=== PATIENT | male | born 1955 | race Caucasian/White ===

== ENCOUNTER 2017-11-03 05:56 | Day surgery (SDC) | payer OTHER ==
[2017-11-03] MEDS ORDERED: SOD CHLORIDE 0.9% 1,000 ML IV (06:00)
[2017-11-03] MEDS ORDERED: GLYCOPYRROLATE 0.4 MG INJ (06:28)
[2017-11-03] MEDS ORDERED: FENTAnyl 50 MCG/ML VIAL (06:28)
[2017-11-03] MEDS ORDERED: NEOSTIGMINE 3 MG/3 ML SYRINGE (06:28)
[2017-11-03] MEDS ORDERED: ROCURONIUM 50 MG INJ (06:28)
[2017-11-03] MEDS ORDERED: MIDAZOLAM 1 MG/ML 2 ML INJ (06:28)
[2017-11-03] MEDS ORDERED: PROPOFOL 20 ML (06:28)
[2017-11-03] MEDS ORDERED: LIDOCAINE 2% (SDV) 5 ML INJ (06:28)
[2017-11-03] MEDS ORDERED: FENTAnyl 50 MCG/ML VIAL IV (06:30)
[2017-11-03] MEDS ORDERED: ONDANSETRON 4 MG INJ (06:30)
[2017-11-03] MEDS ORDERED: ATROPINE 1 MG/10 ML SYRINGE IV (06:30)
[2017-11-03] MEDS ORDERED: OXYCODONE/ACETAMINOPHEN (5/325) TAB PO ×2 (06:30)
[2017-11-03] MEDS ORDERED: MEPERIDINE 25 MG INJ IV (06:30)
[2017-11-03] MEDS ORDERED: SUCCINYLCHOLINE CHLORIDE 100 MG/5 ML SYG IV (06:30)
[2017-11-03] MEDS ORDERED: hydrALAzine 20 MG INJ IV (06:30)
[2017-11-03] MEDS ORDERED: EPHEDrine SULFATE 50 MG/5 ML SYG IV (06:30)
[2017-11-03] MEDS ORDERED: HYDROmorphONE (0.2 MG/ML) 10ML SYG IV ×3 (06:30)
[2017-11-03] MEDS ORDERED: DIPHENHYDRAMINE 50 MG INJ IV (06:30)
[2017-11-03] MEDS ORDERED: MIDAZOLAM 1 MG/ML 2 ML INJ IV (06:30)
[2017-11-03] MEDS ORDERED: LABETALOL HCL 20MG INJ IV (06:30)
[2017-11-03] MEDS ORDERED: DEXAMETHASONE 4 MG/ML 1 ML INJ (06:30)
[2017-11-03] MEDS ORDERED: morphine (1 MG/ML) 10ML SYRINGE IV ×3 (06:30)
[2017-11-03] MEDS: CEFAZOLIN 2 GM/50 ML (PMX) 50 ML IVPB (06:34)
[2017-11-03] MEDS: LACTATED RINGER'S 1,000 ML IV* (06:36)
[2017-11-03] MEDS: VANCOMYCIN 1 GM (PMX) 250 ML IVPB (06:37)
[2017-11-03] MEDS ORDERED: ONDANSETRON 4 MG INJ IV (08:00)
[2017-11-03] MEDS ORDERED: HYDROCODONE/APAP (5/325) TAB PO ×2 (08:00)
[2017-11-03] MEDS: LIDOCAINE 1% (MPF) 30 ML INJ (08:36)
[2017-11-03] MEDS: TRIAMCINOLONE ACET 40 MG/ML INJ (08:53)
[2017-11-03] MEDS: ONDANSETRON 4 MG INJ IV (08:59)
[2017-11-03] MEDS: FENTAnyl 50 MCG/ML VIAL IV (08:59)
[2017-11-05] MEDS ORDERED: LIDOCAINE 1% (MDV) 20 ML INJ (16:27)
== END 2017-11-03 10:10 | disposition home or self-care (01) ==
LOC: SDS 05:56
DX: M23.212 Derangement of anterior horn of medial meniscus due to old tear or injury, left knee (principal); M23.222 Derangement of posterior horn of medial meniscus due to old tear or injury, left knee; E11.9 Type 2 diabetes mellitus without complications; E78.5 Hyperlipidemia, unspecified; J45.909 Unspecified asthma, uncomplicated
CPT/HCPCS: 29881; 71045; 82962; 93005